=== PATIENT | female | born 1975 | race Hispanic/Latino ===

== ENCOUNTER → 2019-07-04 | Outpatient (CLI) | payer BC | END | disposition home or self-care (01) | LOC: OIH 09:05 | PROVIDERS: ATTEND Internal Medicine | DX: J94.8 Other specified pleural conditions (principal) | CPT/HCPCS: 71046 ==

== ENCOUNTER → 2019-12-25 | Outpatient (CLI) | payer BC | END | disposition home or self-care (01) | LOC: OIH 08:13 | PROVIDERS: ATTEND Internal Medicine | DX: M47.27 Other spondylosis with radiculopathy, lumbosacral region (principal); Z90.49 Acquired absence of other specified parts of digestive tract | CPT/HCPCS: 72070; 72100; 72170 ==

== ENCOUNTER → 2020-04-11 | Outpatient (CLI) | payer BC ==
[~2020-04-11] MED LIST: IOHEXOL-350 75 ML VIAL IV ONE
== END | disposition home or self-care (01) ==
LOC: RAH 08:48
PROVIDERS: ATTEND Internal Medicine Gastroenterology
DX: K57.30 Diverticulosis of large intestine without perforation or abscess without bleeding (principal); R10.84 Generalized abdominal pain; R11.0 Nausea; N83.202 Unspecified ovarian cyst, left side; N83.201 Unspecified ovarian cyst, right side
CPT/HCPCS: 74178; Q9967

== ENCOUNTER → 2024-04-12 | Outpatient (CLI) | payer BC | END | disposition home or self-care (01) | LOC: SHCH 13:58 | PROVIDERS: ATTEND Internal Medicine Cardiovascular Disease | DX: I87.1 Compression of vein (principal); I87.2 Venous insufficiency (chronic) (peripheral); I73.9 Peripheral vascular disease, unspecified | CPT/HCPCS: 93925; 93970 ==